=== PATIENT | male | born 1970 | race Caucasian/White ===

== ENCOUNTER 2019-05-14 07:36 | Day surgery (SDC) | payer OTHER ==
[~2019-05-14] VITALS: Ht 172.7 cm; Wt 83.5 kg
--- NOTE | ~2019-05-14 | O ---
[facility] [place] [address] OPERATIVE REPORT Name: JAVED TINAJERO I Room #: 150-9 [facility] M.R.#: [id number] Admission: 05/14/19 Attend Phys: Morales Chowdary MD Discharge: Date of : 70 Report #: [id number] THIS REPORT FOR: cc: Helena Moore,Morales Lua MD ~ CC: HELENA Chowdary DATE OF SERVICE: 05/14/[address] Morales Chowdary and Dr. Helena Moore. PREOPERATIVE DIAGNOSIS: A 2.5 cm soft tissue tumor of the left posterior occiput. POSTOPERATIVE DIAGNOSIS: A 2.5 cm soft tissue tumor of the left posterior occiput. PROCEDURE: Excision of 2.6 x 2.9 soft tissue tumor subfascial left posterior occiput. ANESTHESIA: Local. SURGEON: Morales Chowdary MD DESCRIPTION OF PROCEDURE: The patient was brought to the operating room and placed on operative table in the prone position. Posterior neck was then prepped and draped in a sterile fashion. Skin and subcutaneous tissue were then infiltrated with 0.5% Marcaine and 1% Xylocaine in a 1:1 mixture. A transverse skin incision was performed over the mass using #15 scalpel blade. Hemostasis obtained using electrocautery. Dissection was carried down through subcutaneous tissue and the fascia to this soft tissue tumor, which measured about 2.5-2.9 cm and this was completely excised and sent to pathology. Deep and superficial subcutaneous layers were then reapproximated after obtaining hemostasis with electrocautery. The layers were closed with a simple interrupted 2-0 chromic sutures and the skin then closed with a running 4-0 subcuticular Vicryl stitch. Wound was then dressed with Dermabond. The patient was then taken to the outpatient discharge area, awake, alert and in good condition. Estimated blood loss was approximately 5 mL and the patient tolerated the procedure well. All sponge, lap and instrument counts correct x 2. By: [id number] Morales Chowdary MD /nt
[2019-05-14 08:22] VITALS: BP 123/93
[2019-05-14 10:23] VITALS: BP 123/93
--- NOTE | 2019-05-15 14:07 | PATH ---
[facility] [address] [place] [address] PATHOLOGY RPT PROCEDURE Name: QUE TINAJERO I Room #: [place] [facility] [place] M.R.#: [id number] Admission: 05/14/19 Date of : 70 Discharge: 05/14/19 Report #: [id number] Path Case #: [id number] [facility] Accession Number: [id number] . 01 Material submitted: . head - LEFT POSTERIOR OCCIPUT SOFT TISSUE TUMOR. Modifiers: left, posterior . 01 Clinical history: . localized swelling mass lump neck . 02 Diagnosis: Mature adipose tissue, left posterior occiput soft tissue tumor, resection: - Compatible with a lipoma. (IUV:pit 05/15/2019) QTP 05/15/2019 1010 Local . 02 Electronically signed: . Juana Bowman MD, Pathologist NPI- [id number] . 01 Gross description: . The specimen is received in formalin, labeled "Que Tinajero", "left posterior occiput soft tissue tumor". Received is a poorly circumscribed, unencapsulated segment of bright yellow, lobulated adipose tissue measuring 3.0 x 1.5 x 0.5 cm. The surgical resection margin is inked black. Sectioning reveals a bright yellow, lobulated adipose cut surface with no solid masses or nodules identified. Quarter Lining Smoother sections are submitted in cassette A1.([facility]; 05/14/2019) ALDA/EDGARDO 05/14/2019 1619 Local . 02 Pathologist provided ICD-10: D17.79 . 02 CPT . 456669 Specimen Comment: A courtesy copy of this report has been sent to [phone] Specimen Comment: [phone] Specimen Comment: Report sent to / DR MELCHOR Specimen Comment: A duplicate report has been generated due to demographic updates. Performed at: [address] [id number] MD Wilberto Pérez MD Phone: [phone] Performed at: 02 [place] [address] PATHOLOGY RPT PROCEDURE Name: QUE TINAJERO I Room #: DE[place] [facility] [place] M.R.#: [id number] Admission: 05/14/19 Date of : 70 Discharge: 05/14/19 Report #: [id number] Path Case #: [id number] [facility] [address] [id number] MD Juana Bowman MD Phone: [phone]
== END 2019-05-14 10:35 | disposition home or self-care (01) ==
LOC: OR 07:36 → TBA 10:16 → OR 10:35
DX: R22.1 Localized swelling, mass and lump, neck (principal); D17.0 Benign lipomatous neoplasm of skin and subcutaneous tissue of head, face and neck; K21.9 Gastro-esophageal reflux disease without esophagitis; Z98.890 Other specified postprocedural states; Z79.899 Other long term (current) drug therapy; Z87.442 Personal history of urinary calculi; Z85.828 Personal history of other malignant neoplasm of skin; Z88.8 Allergy status to other drugs, medicaments and biological substances
CPT/HCPCS: 50010; 50101; 50386; 50403; 54118; 56524; 56528